=== PATIENT | male | born 1955 | race Hispanic/Latino ===

== ENCOUNTER 2017-08-16 19:25 | Observation (INO) | payer BC ==
[2017-08-16 19:27] VITALS: BMI 28.5
[2017-08-16 19:54] LABS: BASO # 0.02 K/mm3 (0.0-2.0); BASO % 0.2 % (0.0-3.0); EOS # 0.1 (0.0-0.7); EOS % 0.7 % (1.5-5.0); GRAN # 5.65 (1.4-6.5); HEMATOCRIT 45.8 % (42.0-52.0); LYMPH # 3.7 (1.2-3.4); LYMPH % 34.9 % (22.0-35.0); MEAN CELL VOLUME 88.1 fl (80.0-105.0); MEAN CORPUSCULAR HEMOGLOBIN 30.8 pg (25.0-35.0); MEAN CORPUSCULAR HGB CONC 34.9 g/dl (31.0-37.0); MEAN PLATELET VOLUME 9.9 fl (7.0-11.0); MONO # 1.2 (0.1-0.6); MONO % 11.2 % (1.0-6.0); RED CELL DISTRIBUTION WIDTH 12.7 % (11.5-14.5); WHITE BLOOD COUNT 10.7 10^3/ul (4.5-11.0)
[2017-08-16 20:06] LABS: ALB/GLOB RATIO 1.3 (1.1-1.8); BILIRUBIN,TOTAL 1.1 mg/dL (0.2-1.3); CALCIUM 9.6 mg/dL (8.4-10.5); POTASSIUM 3.7 mmol/L (3.6-5.0); TOTAL PROTEIN 8.1 g/dL (5.8-8.3)
--- NOTE | 2017-08-16 20:14 | CT ---
EXAM: CT Head Without Intravenous Contrast CLINICAL HISTORY: 62 years old, male; Signs and symptoms; Dizziness; Additional info: Code stroke TECHNIQUE: Axial computed tomography images of the head/brain without intravenous contrast. All CT scans at this facility use one or more dose reduction techniques, viz.: automated exposure control; ma/kV adjustment per patient size (including targeted exams where dose is matched to indication; i.e. head); or iterative reconstruction technique. COMPARISON: No relevant prior studies available. FINDINGS: Brain: Minimal atrophy. No intracranial hemorrhage. No mass. No definite edema. Ventricles: No hydrocephalus. Bones/joints: No acute fracture. Soft tissues: Unremarkable. Sinuses: No acute sinusitis. Mastoid air cells: No mastoid effusion. Orbits: Unremarkable as visualized. IMPRESSION: 1. No definite territorial infarction. Acute infarction may be CT occult within first 24 hours. If focal deficit persists, consider followup CT or MRI for further evaluation. 2. Incidental/non-acute findings are described above.
[2017-08-16 20:18] LABS: INR 1.03 (0.93-1.08); PARTIAL THROMBOPLASTIN TIME 23.5 Seconds (25.1-36.5)
[2017-08-16 20:20] LABS: TROPONIN I 0.02 ng/mL
--- NOTE | 2017-08-16 20:54 | CT ---
EXAM: CT Angiography Head With Intravenous Contrast CLINICAL HISTORY: The patient age is 62 years old and is male; Signs and symptoms; Additional info: CVA alert Facility exam id and description: Ct angheadne cta head neck bundle TECHNIQUE: Axial computed tomographic angiography images of the head with intravenous contrast using CT angiography protocol. All CT scans at this facility use one or more dose reduction techniques, viz.: automated exposure control; ma/kV adjustment per patient size (including targeted exams where dose is matched to indication; i.e. head); or iterative reconstruction technique. MIP reconstructed images were created and reviewed. Coronal and sagittal reformatted images were created and reviewed. CONTRAST: 150 mL of [id number] administered intravenously. COMPARISON: CT - HEAD W/O (CODE STROKE) 08/16/2017 7:46:55 PM FINDINGS: Right internal carotid artery: No acute findings. Intracranial segment is patent with no significant stenosis. No aneurysm. Right anterior cerebral artery: No occlusion or significant stenosis. No aneurysm. Right middle cerebral artery: No occlusion or significant stenosis. No aneurysm. Right posterior cerebral artery: No occlusion or significant stenosis. No aneurysm. Right vertebral artery: No occlusion or significant stenosis. Left internal carotid artery: No acute findings. Intracranial segment is patent with no significant stenosis. No aneurysm. Left anterior cerebral artery: No occlusion or significant stenosis. No aneurysm. Left middle cerebral artery: No occlusion or significant stenosis. No aneurysm. Left posterior cerebral artery: No occlusion or significant stenosis. No aneurysm. Left vertebral artery: A dominant left vertebral artery is identified, without significant stenosis or occlusion. Basilar artery: There is increased tortuosity of the basilar artery. No occlusion or significant stenosis. IMPRESSION: 1. There is no significant arterial stenosis or occlusion on this CTA head, as described above. 2. A dominant left vertebral artery is identified. 3. Additional findings described above. EXAM: CT Angiography Neck With Intravenous Contrast EXAM DATE/TIME: 08/16/2017 7:42 PM CLINICAL HISTORY: The patient age is 62 years old and is male; Signs and symptoms; Additional info: CVA alert Facility exam id and description: Ct angheadne cta head neck bundle TECHNIQUE: Axial computed tomographic angiography images of the neck with intravenous contrast using CT angiography protocol. All CT scans at this facility use one or more dose reduction techniques, viz.: automated exposure control; ma/kV adjustment per patient size (including targeted exams where dose is matched to indication; i.e. head); or iterative reconstruction technique. MIP reconstructed images were created and reviewed. Coronal and sagittal reformatted images were created and reviewed. CONTRAST: 150 mL of [id number] administered intravenously. COMPARISON: None available. FINDINGS: VASCULATURE: Right common carotid artery: No significant stenosis. No dissection or occlusion. Right internal carotid artery: Extracranial segment is patent with no significant stenosis. No dissection or occlusion. Right external carotid artery: No occlusion. Right vertebral artery: No occlusion or significant stenosis. Left common carotid artery: No significant stenosis. No dissection or occlusion. Left internal carotid artery: There is minimal atherosclerosis of the proximal left internal carotid artery, without significant stenosis or occlusion. Left external carotid artery: No occlusion. Left vertebral artery: There is mild atherosclerosis of the proximal left vertebral artery, without significant stenosis. A dominant left vertebral artery is identified. NECK: Bones/joints: Spondylosis is visualized at multiple cervical levels. There is straightening of the lordotic curvature of the cervical spine. There is mild retrolisthesis of C3 on C4 and C4 on C5. Lymph nodes: Scattered small cervical lymph nodes are visualized, without significant cervical lymphadenopathy. Oropharynx: Small calcifications are seen within the left palatine tonsil. Hypopharynx: There is effacement of the left piriform sinus, without a well-defined mass. CAROTID STENOSIS REFERENCE USING NASCET CRITERIA: % ICA stenosis = (1 - narrowest ICA diameter/diameter of distal cervical ICA) x 100. Mild - <50% stenosis. Moderate - 50-69% stenosis. Severe - 70-94% stenosis. Near occlusion - 95-99% stenosis. Occluded - 100% stenosis. IMPRESSION: 1. There is no significant stenosis or occlusion of the extracranial carotid arteries. Minimal atherosclerosis is visualized of the proximal left internal carotid artery. 2. There is mild atherosclerosis of the proximal left vertebral artery, without significant stenosis. A dominant left vertebral artery is identified. 3. There is effacement of the left piriform sinus, without a well-defined mass. 4. Incidental/non-acute findings are described above.
--- NOTE | 2017-08-16 20:59 | MRI ---
EXAM: MR Head Without Intravenous Contrast EXAM DATE/TIME: 08/16/2017 8:18 PM CLINICAL HISTORY: The patient age is 62 years old and is male; Signs and symptoms; Walking, difficulty and weakness, extremity; Bilateral; Additional info: CVA alert Facility exam id and description: Mri br s brain without contrast TECHNIQUE: Magnetic resonance images of the head/brain without intravenous contrast in multiple planes. COMPARISON: CTA HEAD NECK BUNDLE 2017-08-16 20:05 FINDINGS: Brain: There is no restricted diffusion within the brain to suggest acute ischemic change. There are a few small foci of high FLAIR signal intensity within the cerebral white matter. There is no mass effect or restricted diffusion associated with these foci. In a patient this age, this likely represents chronic small vessel ischemic disease. There is slight volume loss/atrophy of the frontal lobes. No cerebral edema. Ventricles: No ventriculomegaly. Bones/joints: No acute abnormality. Sinuses: Unremarkable as visualized. No acute sinusitis. Mastoid air cells: No mastoid effusion. Orbits: No acute abnormality, as visualized. IMPRESSION: 1. There is no restricted diffusion within the brain to suggest acute ischemic change. 2. There are a few small foci of high FLAIR signal intensity within the cerebral white matter. In a patient this age, this likely represents chronic small vessel ischemic disease. 3. There is slight volume loss/atrophy of the frontal lobes.
--- NOTE | 2017-08-16 21:42 | ED PDOC ---
Arrival/HPI - General Chief Complaint: High Blood Pressure Time Seen by Provider: 08/16/17 19:31 Historian: Patient, Other (coworker) - Critical Care Critical Care Minutes: 60 minutes - History of Present Illness Narrative History of Present Illness (Text): 08/16/17 19:50 A 62 year old male, whose past medical history includes hypertension and high cholesterol, was brought into the ER by coworker. Upon arrival to the ER, code stroke was called. Per coworker, he reports patient is not himself and patient appears confused. Patient keeps repeating himself, and asking the same questions , as well as telling the same statements. Here in the ER, patient knows who he is and where he is, but he is unable to remember his age. 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 patient denies any fever, chest pain, shortness of breath, headache, or any other complaints at this time. No PMD Past Medical History - Provider Review Nursing Documentation Reviewed: Yes - Cardiac Hx Cardiac Disorders: Yes Hx Hypertension: Yes - Pulmonary Hx Respiratory Disorders: No - Neurological Hx Neurological Disorder: No - HEENT Hx HEENT Disorder: No - Hematological/Oncological Hx Hepatitis A: No - Musculoskeletal/Rheumatological Hx Rhabdomyolysis: No - Gastrointestinal Hx Colostomy: No - Psychiatric Hx Psychophysiologic Disorder: No Hx Substance Use: No - Anesthesia Hx Anesthesia: No Family/Social History - Physician Review Nursing Documentation Reviewed: Yes Family/Social History: No Known Family HX Smoking Status: Never Smoked Hx Alcohol Use: No Hx Substance Use: No Allergies/Home Meds Allergies/Adverse Reactions: Allergies No Known Allergies Allergy (Verified 08/16/17 19:27) Home Medications: Home Meds Medication Instructions Recorded Confirmed Lisinopril [Zestril] 0 mg PO DAILY 08/16/17 08/16/17 Simvastatin [Zocor] 0 mg PO DAILY 08/16/17 08/16/17 Review of Systems - Physician Review All systems were reviewed & negative as marked: Yes - Review of Systems Constitutional: absent: Fevers, Other (patient denies of any pain) Respiratory: absent: SOB Cardiovascular: absent: Chest Pain Gastrointestinal: absent: Abdominal Pain Neurological: absent: Headache Physical Exam Vital Signs Reviewed: Yes Vital Signs Temp Pulse Resp BP Pulse Ox 08/16/17 20:53 88 18 159/101 H 98 08/16/17 19:28 98.6 F 89 18 175/103 H 97 Temperature: Afebrile Blood Pressure: Normal Pulse: Regular Respiratory Rate: Normal Appearance: Positive for: Well-Appearing Pain Distress: None Mental Status: Positive for: Alert and Oriented X 3 (patient is able to recall who he is and where he is, but is unable to remember his age; patient consistently keeps repeating the same statements.), Confused - Systems Exam Head: Present: Atraumatic, Normocephalic Pupils: Present: PERRL Extroacular Muscles: Present: EOMI Conjunctiva: Present: Normal Mouth: Present: Moist Mucous Membranes Neck: Present: Normal Range of Motion Respiratory/Chest: Present: Clear to Auscultation, Good Air Exchange. No: Respiratory Distress, Accessory Muscle Use Cardiovascular: Present: Regular Rate and Rhythm, Normal S1, S2. No: Murmurs Abdomen: Present: Normal Bowel Sounds. No: Tenderness, Distention, Peritoneal Signs Back: Present: Normal Inspection Upper Extremity: Present: Normal Inspection. No: Cyanosis, Edema Lower Extremity: Present: Normal Inspection. No: Edema Neurological: Present: GCS=15, CN II-XII Intact, Speech Normal Skin: Present: Warm, Dry, Normal Color. No: Rashes Psychiatric: Present: Alert, Oriented x 3, Normal Insight, Normal Concentration Medical Decision Making ED Course and Treatment: 08/16/17 19:55 Impression: 62 year old male whom came in with confusion and repetition of statements (Code Stroke). Physical exam is unremarkable, including neuro exam, except patient keeps repeating the same statements. Plan: -- EKG -- Head CT -- Head & Neck CTA -- Brain MRI -- Labs -- Chest X-ray -- Reassess and disposition Progress Notes: EKG: Ordered, reviewed, and independently interpreted the EKG. Rate : 92 BPM Rhythm : NSR Interpretation : with PAC Comparison : No previous EKG for comparison. 08/16/2017 19:44 Code Stroke called. 08/16/2017 20:[address] FINDINGS: Brain: Minimal atrophy. No intracranial hemorrhage. No mass. No definite edema. Ventricles: No hydrocephalus. Bones/joints: No acute fracture. Soft tissues: Unremarkable. Sinuses: No acute sinusitis. Mastoid air cells: No mastoid effusion. orbits: Unremarkable as visualized. IMPRESSION: 1. No definite territorial infarction. Acute infarction may be CT occult within first 24 hours. If focal deficit persists, consider followup CT or MRI for further evaluation. 2. Incidental/non-acute findings are described above. Dictator: Alvin Kumar MD 08/16/2017 20:53 Head CTA FINDINGS: Right internal carotid artery: No acute findings. Intracranial segment is patent with no significant stenosis. No anuerysm. Right anterior cerebral artery: No occlusion or significant stenosis. No anuerysm. Right middle cerebral artery: No occlusion or significant stenosis. No anuerysm. Right posterior cerebral artery: No occlusion or significant stenosis. No anuerysm. Right vertebral artery: No occlusion or significant stenosis. Left internal carotid artery: No acute findings. Intracranial segment is patent with no significant stenosis. No anuerysm. Left anterior cerebral artery: No occlusion or significant stenosis. No anuerysm. Left middle cerebral artery: No occlusion or significant stenosis. No anuerysm. Left posterior cerebral artery: No occlusion or significant stenosis. No anuerysm. Left vertebral artery. A dominant left vertebral is identified, without significany stenosis or occlusion. Basilar artery: There is increased tortuosity of the basilar artery. No occlusion or significant stenosis. IMPRESSION: 1. There is no significant arterial stenosis or occlusion on this CTA head, as described above. 2. A dominant left vertebral artery is identified. 3. Additional fidnigns described above. Dictator: Geraldo Lainez MD 08/16/2017 Neck CTA FINDINGS: VASCULATURE: Right common carotid artery: No significant stenosis. No dissection or occlusion. Right internal carotid artery: Extracranial segment is patent with no significant stenosis. No dissection or occlusion. Right external carotid artery: No occlusion. Right vertebral artery: No occlusion or significant stenosis. Left common carotid artery: No significant stenosis. No dissection or occlusion. Left internal carotid artery: There is minimal atherosclerosis of the proximal left internal carotid artery, without significant stenosis or occlusion. Left external carotid artery: No occlusion. Left vertebral artery: There is mild atherosclerosis of the proximal left vertebral artery, without significant stenosis. A dominant left vertebral artery is identified. NECK: Bones/joints: Spondylosis is visualized at multiple cervical levels. There is straightening of the lordotic curvature of the cervical spine. There is mild retrolisthesis of C3 on C4 and C4 on C5. Lymph nodes: Scattered small cervical lymph nodes are visualized, without significant cervical lymphadenopathy. Oropharynx: Small calcifications are seen within the left palatine tonsil. Hypopharynx: There is effacement of the left piriform sinus, without a well- defined mass. CAROTID STENOSIS REFERENCE USING NASCET CRITERIA: % ICA stenosis = (1 - narrowest ICA diameter/diameter of distal cervical ICA) x 100. Mild - <50% stenosis. Moderate - 50-69% stenosis. Severe - 70-94% stenosis. Near occlusion - 95-99% stenosis. Occluded - 100% stenosis. IMPRESSION: 1. There is no significant stenosis or occlusion of the extracranial carotid arteries. Minimal atherosclerosis is visualized of the proximal left internal carotid artery. 2. There is mild atherosclerosis of the proximal left vertebral artery, without significant stenosis. A dominant left vertebral artery is identified. 3. There is effacement of the left piriform sinus, without a well-defined mass. 4. Incidental/non-acute findings are described above. Dictator: Geraldo Lainez MD 08/16/2017 20:59 Brain MRI IMPRESSION: 1. There is no restricted diffusion within the brain to suggest acute ischemic change. 2. There are a few small foci of high FLAIR signal intensity within the cerebral white matter. In a patient this age, likely represents chronic small vessel ischemic disease. 3. There is slight volume loss/atrophy of the frontal lobes. Dictator: Geraldo Lainez MD 08/16/2017 21:05 After patient came back from MRI scanning, patient recalls incorrectly how he arrived to the ER, and cannot remember what he ate today. Neuro exam is stable. 08/16/17 21:[address] Jang, neurology, whom recommends Aspiring and telemetry admission. Also spoke to Dr. Mittal, whom accepts patient into admission under her service. - Lab Interpretations Lab Results: 08/16/17 19:42 08/16/17 19:42 Lab Results 08/16/17 19:47: Blood Type O POSITIVE, Antibody Screen Negative, BBK History Checked No verified bt 08/16/17 19:42: Sodium 143, Potassium 3.7, Chloride 108 H, Carbon Dioxide 26, Anion Gap 13, BUN 32 H, Creatinine 1.5, Est GFR ( Amer) 57, Est GFR (Non- Af Amer) 47, Random Glucose 90, Calcium 9.6, Total Bilirubin 1.1, AST 49, ALT 52 , Alkaline Phosphatase 91, Troponin I 0.02, Total Protein 8.1, Albumin 4.6, Globulin 3.5, Albumin/Globulin Ratio 1.3, Triglycerides 171 H, Cholesterol 177, LDL Cholesterol Direct 96, HDL Cholesterol 51 08/16/17 19:42: PT 11.2, INR 1.03, APTT 23.5 L 08/16/17 19:42: WBC 10.7, RBC 5.20, Hgb 16.0, Hct 45.8, MCV 88.1, MCH 30.8, MCHC 34.9, RDW 12.7, Plt Count 164, MPV 9.9, Gran % 53.0, Lymph % (Auto) 34.9, [place] % (Auto) 11.2 H, Eos % (Auto) 0.7 L, Baso % (Auto) 0.2, Gran # 5.65, Lymph # 3.7 H, [place] # 1.2 H, Eos # 0.1, Baso # 0.02 I have reviewed the lab results: Yes - RAD Interpretation Radiology Orders: 08/16/17 19:42 CTA HEAD & NECK BUNDLE [CT] Stat HEAD W/O (CODE STROKE) [CT] Stat CHEST PORTABLE [RAD] Stat 08/16/17 20:18 BRAIN WITHOUT CONTRAST [MRI] Stat - Medication Orders Current Medication Orders: Sodium Chloride (Sodium Chloride 0.9%) 1,000 mls @ 100 mls/hr IV .Q10H DANIEL Discontinued Medications Aspirin (Aspirin) 325 mg PO STAT STA Stop: 08/16/17 21:44 Last Admin: 08/16/17 22:02 Dose: 325 mg NIHSS Scale ([place]) Time Performed: 19:30 - How Severe is the Stoke Baseline Level of Consciousness: 0=Alert LOC to Questions: 1=One correct LOC to commands: 0=Obeys both correctly Best Gaze: 0=Normal Visual: 0=No visual loss Facial: 0=Normal Motor Arm - Left: 0=No drift Motor Arm - Right: 0=No drift Motor Leg - Left: 0=No drift Motor Leg - Right: 0=No drift Limb Ataxia: 0=Absent Sensory: 0=Normal Best Language: 0=No aphasia Dysarthia: 0=Normal articulation Extinction & Inattention (Neglect): 0=Normal, no object Score: 1 Risk Level: Minor Stroke Risk rTPA Inclusion/Exclusion - Refusal of Treatment Patient Refused Treatment: No - Inclusion Criteria for Altepase Patient is 18 years or Older: Yes The Clinical Diagnosis of Ischemic Stroke That is Causing a Potentially Disabling Neurological Deficit: No Time of Onset is Well Established to be Less Than 270 Minute Before Treatment Would Begin: Yes Risk/Benefit Discussed With Patient/Family Member Present: No - Scribe Statement The provider has reviewed the documentation as recorded by the Suzie Fay Provider Scribe Attestation: All medical record entries made by the Suzie were at my direction and personally dictated by me. I have reviewed the chart and agree that the record accurately reflects my personal performance of the history, physical exam, medical decision making, and the department course for this patient. I have also personally directed, reviewed, and agree with the discharge instructions and disposition. Disposition/Present on Arrival - Present on Arrival Any Indicators Present on Arrival: No History of DVT/PE: No History of Uncontrolled Diabetes: No Urinary Catheter: No History of Decub. Ulcer: No History Surgical Site Infection Following: None - Disposition Have Diagnosis and Disposition been Completed?: Yes Diagnosis: TIA (transient ischemic attack) Disposition: HOSPITALIZED Disposition Time: 21:30 Patient Plan: Admission Condition: GUARDED
[2017-08-17] MEDS: Sodium Chloride 0.9% 1,000 ML IV SCH ×3 (03:10→17:45)
--- NOTE | 2017-08-17 09:15 | RAD ---
HISTORY: CVA alert COMPARISON: No prior. FINDINGS: LUNGS: No active pulmonary disease. PLEURA: No significant pleural effusion identified, no pneumothorax apparent. CARDIOVASCULAR: Normal. OSSEOUS STRUCTURES: No significant abnormalities. VISUALIZED UPPER ABDOMEN: Normal. OTHER FINDINGS: None. IMPRESSION: No acute cardiopulmonary disease appreciated.
--- NOTE | 2017-08-17 09:28 | CP.PCM.CON ---
<Che Morton - Last Filed: 08/17/17 18:05> History of Present Illness - History of Present Illness History of Present Illness: PGY-2 Neurology consult note for Dr. Jang's service 62 year old male, with past medical history includes hypertension and high cholesterol, was brought into the ER for confusion. Patient does not recall what occurred before coming to the ED. He states that his coworker told him that he was acting strange. 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 He state she did not eat breakfast and does not recall if he eat lunch., he reports that he did take his AM dose of his BP medication, and reports compliance. In the ER, code stroke was called. This morning patient is alert and oriented to person time, place and situation. He denies any fever, chest pain, shortness of breath, headache, or any other complaints at this time. PMH: hypertension and high cholesterol psh: Appendectomy, bilateral inguinal hernia repair, as a child social history: denies smoking, occasional alcohol use, denies illicit drug use family history: father- skin cancer allergy: NKDA home meds: propanolol and simvastatin Review of Systems - Review of Systems All systems: reviewed and no additional remarkable complaints except (as stated in HPI) Past Patient History - Past Social History Smoking Status: Never Smoked - CARDIAC Hx Cardiac Disorders: Yes Hx Hypertension: Yes - PULMONARY Hx Respiratory Disorders: No - NEUROLOGICAL Hx Neurological Disorder: No - HEENT Hx HEENT Problems: No - HEMATOLOGICAL/ONCOLOGICAL Hx Hepatitis A: No - MUSCULOSKELETAL/RHEUMATOLOGICAL Hx Falls: No - GASTROINTESTINAL Hx Colostomy: No - PSYCHIATRIC Hx Psychophysiologic Disorder: No Hx Substance Use: No - ANESTHESIA Hx Anesthesia: No Meds Allergies/Adverse Reactions: Allergies Allergy/AdvReac Type Severity Reaction Status Date / Time No Known Allergies Allergy Verified 08/16/17 19:27 - Medications Medications: Current Medications Aspirin (Ecotrin) 81 mg PO DAILY [facility] Atorvastatin Calcium (Lipitor) 10 mg PO DIN [facility] Sodium Chloride (Sodium Chloride 0.9%) 1,000 mls @ 100 mls/hr IV .Q10H DANIEL Last Admin: 08/17/17 03:10 Dose: 100 mls/hr Lisinopril (Zestril) 10 mg PO DAILY [facility] Physical Exam - Constitutional Appears: Well, No Acute Distress - Head Exam Head Exam: ATRAUMATIC, NORMAL INSPECTION, NORMOCEPHALIC - Eye Exam Eye Exam: EOMI, Normal appearance - ENT Exam ENT Exam: Mucous Membranes Moist - Respiratory Exam Respiratory Exam: Clear to Auscultation Bilateral, NORMAL BREATHING PATTERN. absent: Decreased Breath Sounds, Rales, Rhonchi, Wheezes, Respiratory Distress, Stridor - Cardiovascular Exam Cardiovascular Exam: REGULAR RHYTHM, +S1, +S2. absent: Tachycardia, Diastolic murmur, Systolic Murmur - GI/Abdominal Exam GI & Abdominal Exam: Normal Bowel Sounds, Soft. absent: Distended, Firm, Tenderness - Extremities Exam Extremities exam: Positive for: normal inspection. Negative for: pedal edema, tenderness - Neurological Exam Neurological exam: Alert, CN II-XII Intact, Oriented x3 - Expanded Neurological Exam Expanded Patient oriented to: person, place, time Cranial nerves: EOM's Intact: Normal, Tongue Deviation: Normal Cerebellar Function: Finger to Nose: Normal Neuro motor strength exam: Left Upper Extremity: 5, Right Upper Extremity: 5, Left Lower Extremity: 5, Right Lower Extremity: 5 - Psychiatric Exam Psychiatric exam: Normal Affect, Normal Mood - Skin Skin Exam: Dry, Intact, Normal Color, Warm Results - Vital Signs Recent Vital Signs: Last Vital Signs Temp 97 F L 08/17/17 05:44 Pulse 80 08/17/17 05:44 Resp 16 08/17/17 05:44 BP 156/88 H 08/17/17 05:44 Pulse Ox 100 08/16/17 22:00 - Labs Result Diagrams: 08/16/17 19:42 08/16/17 19:42 Labs: Laboratory Results - last 24 hr 08/16/17 22:30 Blood Type Confirm O POSITIVE Assessment & Plan - Assessment and Plan (Free Text) Assessment: 62 year old male, with past medical history includes hypertension and high cholesterol, was admitted for acute transit confusional state most likely due to HTN urgency. 1. AMS 2. hypertension 3. dyslipidemia - Head CT was negative, MRI was negative for acute ischemic changes with small vessel disease - maintain systolic blood pressure between 130-140 and diastolic blood pressure between 70-80 - asa 81mg - lipitor 20mg - continue use of home CPAP at night - patient will need to follow up with primary care physician for HTN management thank you for the consult, please reconsult if needed. Case reviewed and discussed with attending, Dr. Jang. <Alf Jang - Last Filed: 08/18/17 09:20> Meds - Medications Medications: Current Medications Acetaminophen (Tylenol 325mg Tab) 650 mg PO Q4H PRN PRN Reason: Pain, moderate (4-7) Last Admin: 08/17/17 18:26 Dose: 650 mg Aspirin (Ecotrin) 81 mg PO DAILY DANIEL Last Admin: 08/17/17 09:59 Dose: 81 mg Atorvastatin Calcium (Lipitor) 20 mg PO DIN [facility] Last Admin: 08/17/17 18:23 Dose: 20 mg Sodium Chloride (Sodium Chloride 0.9%) 1,000 mls @ 100 mls/hr IV .Q10H DANIEL Last Admin: 08/18/17 02:55 Dose: 100 mls/hr Lisinopril (Zestril) 10 mg PO HS [facility] Last Admin: 08/17/17 22:47 Dose: 10 mg Results - Vital Signs Recent Vital Signs: Last Vital Signs Temp 97.5 F L 08/18/17 06:00 Pulse 78 08/18/17 06:00 Resp 20 08/18/17 06:00 BP 131/75 08/18/17 06:00 Pulse Ox 97 08/18/17 06:00 - Labs Result Diagrams: 08/16/17 19:42 08/16/17 19:42 Labs: Laboratory Results - last 24 hr 08/17/17 08/17/17 08/17/17 09:20 16:18 21:51 POC Glucose (mg/dL) 76 99 TSH 3rd Generation 1.01 Attending/Attestation - Attestation I have personally seen and examined this patient.: Yes I have fully participated in the care of the patient.: Yes I have reviewed all pertinent clinical information: Yes
--- NOTE | 2017-08-17 10:24 | CARD ---
APPROVED REPORT EKG Measurement Heart [id number] <Conclusion> Sinus rhythm with premature atrial complexes NSSTW changes
[2017-08-17 18:09] VITALS: RESP 20
--- NOTE | 2017-08-17 19:31 | CARD ---
APPROVED REPORT EXAM: Two-dimensional and M-mode echocardiogram with Doppler and color Doppler. INDICATION CVA/TIA 2D DIMENSIONS Left Atrium (2D)3.4 (1.6-4.0cm) M-Mode DIMENSIONS IVSd1.17 (0.7-1.1cm)Aortic Root2.60 (2.2-3.7cm) LVDd4.52 (4.0-5.6cm)Aortic Cusp Exc.2.00 (1.5-2.0cm) PWd1.17 (0.7-1.1cm)IVSs1.45 cm FS (%) 39 %LVDs2.74 (2.0-3.8cm) PWs1.65 cmLVEF (%)70 (>50%) Aortic Valve AoV Peak Imthqaih914.0cm/Ignacio Peak GR.6mmHg Mitral Valve MV E Riuloeap92.2cm/sMV A Vmsdcvbz22.3cm/sE/A ratio0.7 TDI E/Lateral E'0.0E/Medial E'0.0 Tricuspid Valve TR Peak Vvjryjvz526me/sRAP [id number] Peak Gr.19mmHg [id number] LEFT VENTRICLE The left ventricle is normal size. There is borderline concentric left ventricular hypertrophy. The left ventricular function is normal.EF-65-70% There is normal LV segmental wall motion. Transmitral Doppler flow pattern is Grade III-reversible restrictive diastolic dysfunction. No left ventricle thrombus noted on this study. There is no ventricular septal defect visualized. There is no left ventricular aneurysm. There is no mass noted in the left ventricle. RIGHT VENTRICLE The right ventricle is normal size. There is normal right ventricular wall thickness. The right ventricular systolic function is normal. ATRIA The left atrium size is normal. The right atrium size is normal. The interatrial septum is intact with no evidence for an atrial septal defect. AORTIC VALVE The aortic valve is thickened but opens well. The aortic valve is mildly sclerotic. There is trace aortic regurgitation. There is no aortic valvular stenosis. There is no aortic valvular vegetation. MITRAL VALVE The mitral valve is thickened but opens well. Mitral annular calcification is mild. Mitral regurgitation is trace. There is no mitral valve stenosis. There is no evidence of mitral valve prolapse. TRICUSPID VALVE The tricuspid valve leaflets are thickened , but open well. There is trace tricuspid regurgitation.RVSP-29 mmof hg. There is no tricuspid valve stenosis. There is no tricuspid valve prolapse or vegetation. PULMONIC VALVE The pulmonary valve is normal in structure. There is no pulmonic valvular regurgitation. There is no pulmonic valvular stenosis. GREAT VESSELS The aortic root is normal in size. The ascending aorta is normal in size. The pulmonary artery is normal. The IVC is normal in size and collapses >50% with inspiration. PERICARDIAL EFFUSION There is no pleural effusion. There is no pericardial effusion. <Conclusion> The left ventricle is normal size. There is borderline concentric left ventricular hypertrophy. The left ventricular function is normal.EF-65-70% There is trace aortic regurgitation. Mitral regurgitation is trace. There is trace tricuspid regurgitation.RVSP-29 mmof hg. There is no pericardial effusion. No thrombus noted.
--- NOTE | 2017-08-17 21:04 | CP.PCM.HP ---
<Rachel Long - Last Filed: 08/17/17 21:00> History of Present Illness - History of Present Illness History of Present Illness: 62 yr male w/ history of HTN, hyperlipidemia was brought to [facility] [place] after pt was found at work slurring his speech and with altered mental status. The co- worker who brought him into the ED stated that he appeared confused. Pt was examined at the bedside with his present. He denies any fever, chest pain, SOB, headache, constipation, diarrhea, urinary changes or distress. Present on Admission - Present on Admission Any Indicators Present on Admission: Yes History of DVT/PE: No History of Uncontrolled Diabetes: No Urinary Catheter: No Decubitus Ulcer Present: No Review of Systems - Constitutional Constitutional: As Per HPI. absent: Anorexia, Chills, Daytime Sleepiness, Excessive Sweating, Fatigue, Fever, Frequent Falls, Headache, Increased Appetite , Lethargy, Malaise, Night Sweats, Snoring, Sleep Apnea, Weight Gain, Weight Loss, Weakness, Other - EENT Eyes: As Per HPI. absent: Blind Spots, Blurred Vision, Change in Vision, Decreased Night Vision, Diplopia, Discharge, Dry Eye, Exophthalmos, Floaters, Irritation, Itchy Eyes, Loss of Peripheral Vision, Pain, Photophobia, Requires Corrective Lenses, Sees Flashes, Spots in Vision, Tunnel Vision, Other Visual Disturbances, Loss of Vision, Other Ears: As Per HPI. absent: Decreased Hearing, Ear Discharge, Ear Pain, Tinnitus , Abnormal Hearing, Disequilibrium, Dizziness, Other Nose/Mouth/Throat: As Per HPI. absent: Epistaxis, Nasal Congestion, Nasal Discharge, Nasal Obstruction, Nasal Trauma, Nose Pain, Post Nasal Drip, Sinus Pain, Sinus Pressure, Bleeding Gums, Change in Voice, Dental Pain, Dry Mouth, Dysphagia, Halitosis, Hoarsness, Lip Swelling, Mouth Lesions, Mouth Pain, Odynophagia, Sore Throat, Throat Swelling, Tongue Swelling, Facial Pain, Neck Pain, Neck Mass, Other - Cardiovascular Cardiovascular: As Per HPI. absent: Acrocyanosis, Chest Pain, Chest Pain at Rest, Chest Pain with Activity, Claudication, Diaphoresis, Dyspnea, Dyspnea on Exertion, Edema, Irregular Heart Rhythm, Pain Radiating to Arm/Neck/Jaw, Leg Edema, Leg Ulcers, Lightheadedness, Orthopnea, Palpitations, Paroxysmal Nocturnal Dyspnea, Pedal Edema, Radiating Pain, Rapid Heart Rate, Slow Heart Rate, Syncope, Other - Respiratory Respiratory: As Per HPI. absent: Cough, Dyspnea, Hemoptysis, Dyspnea on Exertion, Wheezing, Snoring, Stridor, Pain on Inspiration, Chest Congestion, Excessive Mucous Production, Change in Mucous Color, Pain with Coughing, Other - Gastrointestinal Gastrointestinal: As Per HPI. absent: Abdominal Pain, Belching, Bloating, Change in Bowel Habits, Change in Stool Character, Coffee Ground Emesis, Constipation, Cramping, Diarrhea, Dyspepsia, Dysphagia, Early Satiety, Excessive Flatus, Fecal Incontinence, Heartburn, Hematemesis, Hematochezia, Loose Stools, Melena, Nausea, Odynophagia, Temesmus, Vomiting, Other - Genitourinary Genitourinary: As Per HPI. absent: Change in Urinary Stream, Difficulty Urinating, Dysuria, Flank Pain, Hematuria, Pyuria, Nocturia, Urinary Incontinence, Urinary Frequency, Urinary Hesitance, Urinary Urgency, Voiding Freq/Small Amts, Freq UTI, Hx Renal/Bladder Calculi, Hx /Renal Surgery, Bladder Distension, Other - Musculoskeletal Musculoskeletal: As Per HPI. absent: Abnormal Gait, Arthralgias, Atrophy, Back Pain, Deformity, Joint Swelling, Limited Range of Motion, Loss of Height, Muscle Cramps, Muscle Weakness, Myalgias, Neck Pain, Numbness, Radiating Pain into Limb, Stiffness, Tingling, Other - Integumentary Integumentary: As Per HPI. absent: Acne, Alopecia, Bleeding Lesions, Change in Hair, Change in Nails, Change in Pigmentation, Changing Lesions, Dry Skin, Erythema, Furuncle, Hirsutism, Lesions, New Lesions, Non-Healing Lesions, Photosensitivity, Pruritus, Rash, Skin Pain, Skin Ulcer, Sores, Striae, Swelling , Unusual Bruising, Wounds, Jaundice, Other - Endocrine Endocrine: As Per HPI. absent: Change in Body Appearance, Change in Libido, Cold Intolorance, Deepening of Voice, Excessive Sweating, Fatigue, Flushing, Heat Intolorance, Increase in Ring/Shoe/Hat Size, Palpitations, Polydipsia, Polyphagia, Polyuria, Other - Hematologic/Lymphatic Hematologic: As Per HPI. absent: Easy Bleeding, Easy Bruising, Lymphadenopathy , Other Past Patient History - Infectious Disease Hx of Infectious Diseases: None - Past Medical History & Family History Past Family History: Reviewed and not pertinent - Past Social History Smoking Status: Never Smoked - CARDIAC Hx Cardiac Disorders: Yes Hx Hypertension: Yes - PULMONARY Hx Respiratory Disorders: No - NEUROLOGICAL Hx Neurological Disorder: No - HEENT Hx HEENT Problems: No - RENAL Hx Chronic Kidney Disease: No - ENDOCRINE/METABOLIC Hx Endocrine Disorders: No - HEMATOLOGICAL/ONCOLOGICAL Hx Hepatitis A: No - INTEGUMENTARY Hx Dermatological Problems: No - MUSCULOSKELETAL/RHEUMATOLOGICAL Hx Musculoskeletal Disorders: No Hx Falls: No - GASTROINTESTINAL Hx Colostomy: No Other/Comment: appendectomy, bilateral inguinal hernia repair - GENITOURINARY/GYNECOLOGICAL Hx Genitourinary Disorders: No - PSYCHIATRIC Hx Psychophysiologic Disorder: No Hx Substance Use: No - SURGICAL HISTORY Hx Surgeries: Yes Hx Appendectomy: Yes - ANESTHESIA Hx Anesthesia: No Meds Allergies/Adverse Reactions: Allergies Allergy/AdvReac Type Severity Reaction Status Date / Time No Known Allergies Allergy Verified 08/16/17 19:27 Physical Exam - Constitutional Appears: Well - Head Exam Head Exam: ATRAUMATIC, NORMOCEPHALIC - Eye Exam Eye Exam: Normal appearance Pupil Exam: NORMAL ACCOMODATION - ENT Exam ENT Exam: Mucous Membranes Moist - Neck Exam Neck exam: Positive for: Full Rom, Normal Inspection - Respiratory Exam Respiratory Exam: Clear to Auscultation Bilateral, NORMAL BREATHING PATTERN - Cardiovascular Exam Cardiovascular Exam: +S1, +S2 - GI/Abdominal Exam GI & Abdominal Exam: Normal Bowel Sounds, Soft - Rectal Exam Rectal Exam: Deferred Additional comments: deferred - Exam Exam: NORMAL INSPECTION - Back Exam Back exam: NORMAL INSPECTION - Neurological Exam Neurological exam: Alert, Oriented x3 - Psychiatric Exam Psychiatric exam: Normal Affect, Normal Mood - Skin Skin Exam: Dry, Intact, Warm Results - Vital Signs Recent Vital Signs: Last Vital Signs Temp 98.2 F 08/17/17 18:00 Pulse 79 08/17/17 18:00 Resp 20 08/17/17 18:00 BP 144/81 08/17/17 18:00 Pulse Ox 100 08/16/17 22:00 - Labs Result Diagrams: 08/16/17 19:42 08/16/17 19:42 Labs: Laboratory Results - last 24 hr 11/20/17 11/21/17 11/21/17 22:30 09:20 16:18 POC Glucose (mg/dL) 76 TSH 3rd Generation 1.01 Blood Type Confirm O POSITIVE Assessment & Plan (1) TIA (transient ischemic attack) Status: Acute (2) Hypertension Status: Chronic (3) Hypertriglyceridemia Status: Chronic (4) Hyperlipidemia Status: Chronic - Assessment and Plan (Free Text) Plan: Agree with current plan of care. Will continue to monitor. Neuro - Dr. Jang: BP control (130-140/70-80), asa, lipitor, CPAP @ night Reviewed: ECHO (+) Borderline concentric LVH, EF 65-70%, AR, TR Brain MRI (+)chronic small vessel ischemic disease, slight volume loss/atrophy of frontal lobes Head CTA (-)arterial stenosis or occlusion Neck CTA (+)minimal atherosclerosis of proximal L interal carotid, mild atherosclerosis proximal L vertebral artery, effacement L pririform sinus Head CT (-) infarct, WNL ECG (+) NSR w/ PAC, NSSTW changes CXR (-) WNL Decision To Admit - Pt Status Changed To: Hospital Disposition Of: Inpatient Admission - Admit Certification Admit to Inpatient:: After my assessment, the patient will require hospitalization for at least two midnights. This is because of the severity of symptoms shown, intensity of services needed, and/or the medical risk in this patient being treated as an outpatient. - . Bed Request Type: Telemetry <Irene Mittal - Last Filed: 08/18/17 08:04> Results - Vital Signs Recent Vital Signs: Last Vital Signs Temp 97.5 F L 08/18/17 06:00 Pulse 78 08/18/17 06:00 Resp 20 08/18/17 06:00 BP 131/75 08/18/17 06:00 Pulse Ox 97 08/18/17 06:00 - Labs Result Diagrams: 08/16/17 19:42 08/16/17 19:42 Labs: Laboratory Results - last 24 hr 08/17/17 08/17/17 08/17/17 09:20 16:18 21:51 POC Glucose (mg/dL) 76 99 TSH 3rd Generation 1.01 Assessment & Plan - Assessment and Plan (Free Text) Plan: pt is seen and examined at bed side . agreed all above . d/d with pt . staff and spot remover labs ,meds and chart noted . neuro consult called . waiting for neuro input , cont. present treatment
--- NOTE | 2017-08-17 23:25 | CON ---
DATE: 08/16/2017 CARDIOLOGY CONSULTATION REASON FOR CONSULTATION AND FOLLOWUP: Cardiac evaluation, admitted with possible TIA. 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 Briefly, this is a 62-year-old male with past medical history significant for hypertension and hyperlipidemia, brought to the ER because of possible state of confusion. The patient states that he was putting no parking sign and he was taking no parking sign, and by mistake, all the signs off and found to have blood pressure /103 in the ER. The patient denies any chest pain, shortness of breath, or any palpitation. He says that he did not eat the breakfast and the lunch yesterday. Denies any episode of chest pain, shortness of breath, or any palpitation. Denies any dizziness or double vision. PAST MEDICAL HISTORY: Significant for hypertension and hyperlipidemia. FAMILY HISTORY: Father has a cancer. No history of coronary artery disease. SOCIAL HISTORY: Denies any history of smoking. Denies any history of alcohol abuse. PAST SURGICAL HISTORY: Significant for appendectomy, inguinal hernia repair as a child at the age of 3 and recently 4 years ago, and history of left ankle surgery. ALLERGIES: NO KNOWN DRUG ALLERGY. CURRENT MEDICATIONS: The patient takes lisinopril and simvastatin. REVIEW OF SYSTEMS: As per HPI. PHYSICAL EXAMINATION: VITAL SIGNS: As follows, temperature afebrile, heart rate 71 and blood pressure 145/87. HEENT: PERRLA. Extraocular muscles are intact. NECK: Supple. No carotid bruits or thyromegaly. CHEST: Clear to auscultation. HEART: S1 and S2 regular. ABDOMEN: Soft. EXTREMITIES: Clubbing and cyanosis negative. LABORATORY DATA: Blood workup as follows; WBC 10.7, hemoglobin 16, hematocrit 45.8, and platelet count 164. Chemistry shows sodium 143, potassium 3.0, chloride 108, carbon dioxide 26, anion gap of 13, BUN 32 and creatinine 1.5. IMPRESSION: Period of amnesia or forgetfulness, loss of memory, altered mental status, hypertension, admitting blood pressure was 173/103. History of hypertension and hyperlipidemia, rule out transient ischemic attack. No evidence of ischemic event, no evidence of coronary artery disease or ischemia. RECOMMENDATION: We will add lipid profile, we will add TSH. We will get echo to assess LV function. Neuro evaluation. Further recommendation as per hospital course. We will follow with you. Also suggest a stress test as an outpatient for risk stratification as outpatient. Thank you Dr. Mittal for providing us the opportunity in taking care of [place] Santacruz. Zelda Arriaga MD cc: Irene Mittal MD
[2017-08-18 02:13] VITALS: O2SAT 97
[2017-08-18] MEDS: Sodium Chloride 0.9% 1,000 ML IV SCH (02:55)
[2017-08-18 06:02] VITALS: BP 131/75; TEMP 97.5
[2017-08-18 12:17] VITALS: PULSE 81
== END 2017-08-18 14:00 | disposition home or self-care (01) ==
LOC: ED 19:25 → INTOOBSV 21:53 → ERH 21:53 → 2RSO 23:22
PROVIDERS: ADMIT Internal Medicine; ATTEND Internal Medicine
DX: I16.0 Hypertensive urgency (principal); R41.3 Other amnesia; E78.5 Hyperlipidemia, unspecified; E78.1 Pure hyperglyceridemia
CPT/HCPCS: 36415; 70450; 70496; 70498; 70551; 71010; 80053; 80061; 82948; 83036; 84443; 84484; 85025; 85610; 85730; 86850; 86900; 93005; 93306; 99284; G0378; J7040; Q9967